=== PATIENT | male | born 1985 | race Caucasian/White ===

== ENCOUNTER 2017-06-19 18:30 | Emergency (ER) | payer SELFPAY ==
[2017-06-19 18:36] VITALS: BP 122/86
--- NOTE | 2017-06-19 18:39 | UC ---
Eye Complaint HPI - HPI Summary HPI Summary: 31 y/o male presents to the urgent care c/o B/L eye redness with a whoop eye discharge since this morning. Pt states he was mowing the lawn this morning and after that his eye became red with visual disturbance. He developed itchiness. However, later he had mild left eye yellowish eye discharge. Pt denies eye pain , [place], fever, eye swelling, SOB, chest pain ,N/V/D - History of Current Complaint Chief Complaint: UCEye Stated Complaint: EYE COMPLAINT Time Seen by Provider: 06/19/17 18:38 Hx Obtained From: Patient Onset/Duration: Gradual Onset, Lasting Hours - since this morning, Still Present Timing: Constant Severity Initially: Mild Severity Currently: Mild Pain Intensity: 0 Pain Scale Used: 0-10 Numeric Location of Injury: Conjunctiva - b/L red Character: Dull Aggravating Factor(s): Blinking Alleviating Factor(s): Nothing Associated Signs And Symptoms: Positive: Drainage (Purulent) - yellowish left eye discharge. Negative: Photophobia, Vision Impairment Bilateral, Fever, Swelling - Risk Factors Penetrating Injury Risk Factor: Negative Globe Rupture Risk Factors: Negative Acute Glaucoma Risk Factors: Negative Optic Artery Occlusion Risk Factors: Negative - Allergies/Home Medications Allergies/Adverse Reactions: Allergies Allergy/AdvReac Type Severity Reaction Status Date / Time Sulfa Antibiotics Allergy Unknown Unknown Verified 06/19/17 18:36 Reaction Details PMH/Surg Hx/FS Hx/Imm Hx Previously Healthy: Yes - Pt denies PMHX - Surgical History Surgical History: None - Family History Known Family History: Positive: Hypertension - Social History Occupation: Employed Full-time Lives: With Family Alcohol Use: None Substance Use Type: None Smoking Status (MU): Never Smoked Tobacco Review of Systems Constitutional: Negative Skin: Negative Eyes: Drainage - Left eye yellowish eye this charge earlier, Eye Redness - B/L ENT: Negative Respiratory: Negative Cardiovascular: Negative Gastrointestinal: Negative Genitourinary: Negative Motor: Negative Neurovascular: Negative Musculoskeletal: Negative Neurological: Negative Psychological: Negative Is Patient Immunocompromised?: No All Other Systems Reviewed And Are Negative: Yes Physical Exam Triage Information Reviewed: Yes Appearance: Well-Appearing, No Pain Distress, Well-Nourished Vital Signs: Initial Vital Signs Temp 98.7 F 06/19/17 18:34 Pulse 68 06/19/17 18:34 Resp 16 06/19/17 18:34 BP 122/86 06/19/17 18:34 Vital Signs Reviewed: Yes Eyes: Positive: Conjunctiva Inflamed - PERRLA, EOMI, fundi grossly normal, conjunctiva mildly injected w/ clear eye discharge . B/L eye lids with mild erythema and itching. ENT Exam: Normal ENT: Positive: Normal ENT inspection, Hearing grossly normal, Pharynx normal, TMs normal Eye Complaint Course/Dx - Course Course Of Treatment: 31 y/o male presents to the urgent care c/o B/L eye redness with a whoop eye discharge since this morning. Pt states he was mowing the lawn this morning and after that his eye became red with visual disturbance. He developed itchiness. However, later he had mild left eye yellowish eye discharge. Pt denies eye pain, [place], fever, eye swelling, SOB, chest pain ,N/V/D. Hx obtained. PE abnormal findings:PERRLA, EOMI, fundi grossly normal, conjunctiva mildly injected w/ clear eye discharge . B/L eye lids with mild erythema and itching. Most likely allergic conjunctivitis. Pt advises to buy OTC Zaditor ophtalmic drops to alleviate symptoms. However Pt requested bacterial opthalmic anbiotic in case he wakes up with yellowish wyw discahrge tomorrow. Pt Rx Bacitracin ophthalmic ointment. Pt understood and agreed with plan or care and left the clinic ambulating. - Differential Dx/Diagnosis Differential Diagnosis/HQI/PQRI: Conjunctivitis, Corneal Abrasion, Foreign Body , Periorbital Cellulitis, Uveitis Provider Diagnoses: 1- Acute allergic conjunctivitis Discharge - Discharge Plan Condition: Stable Disposition: HOME Prescriptions: Bacitracin OPHTH.OINT* 1 applic .SEE ORDER Q6HR #1 oint Patient Education Materials: Conjunctivitis (ED) Referrals: [facility] [place] [facility] [Outside] - If Needed Additional Instructions: 1-Use Zaditor opthalmic drops OTC 1 gtt in each eye BID x 7 days to alleviate allergic conjunctivitis. 2- If tomorrow you wake up with yellowish eye discharge. Stop using the Zaditor and apply Bacitracin ophthalmic drops as instructed and finish the full course of treatment to avoid recurrent infection. 3-If you do not improve or if symptoms worsen please f/u with airfield services officer for further evaluation and treatment
== END 2017-06-19 19:25 | disposition home or self-care (01) ==
LOC: UCEAST 18:30
DX: H10.10 Acute atopic conjunctivitis, unspecified eye (principal); Z88.2 Allergy status to sulfonamides
CPT/HCPCS: 99202; G0463